=== PATIENT | male | born 1960 ===

== ENCOUNTER 2024-02-12 14:57 | Inpatient (IN) | payer OTHER, MEDICARE ==
[~2024-02-12] VITALS: Ht 175.3 cm; Wt 100.7 kg
[2024-02-12 15:34] LABS: BASOPHILS ABSOLUTE AUTO 0.03 K/mm3 (0.00-0.23); BASOPHILS PERCENT AUTO 0 % (0-2); EOSINOPHILS ABSOLUTE AUTO 0.17 K/mm3 (0.00-0.68); EOSINOPHILS PERCENT AUTO 2 % (0-6); Hematocrit 39.7 % (37.0-53.0); Hemoglobin 13.7 g/dL (13.5-17.5); IMMATURE GRAN ABSOLUTE AUTO 0.02 K/mm3 (0.00-0.10); IMMATURE GRAN PERCENT AUTO 0 % (0-1); LYMPHOCYTES ABSOLUTE AUTO 1.68 K/mm3 (0.84-5.20); LYMPHOCYTES PERCENT AUTO 24 % (21-46); MONOCYTES ABSOLUTE AUTO 0.89 K/mm3 (0.16-1.47); MONOCYTES PERCENT AUTO 13 % (4-13); Mean Corpuscular HGB 31.4 pg (26.0-34.0); Mean Corpuscular HGB Conc 34.5 g/dL (31.5-36.5); Mean Corpuscular Volume 91 fL (80-100); Mean Platelet Volume 9.7 fL (9.1-12.4); NEUTROPHILS ABSOLUTE AUTO 4.17 K/mm3 (1.96-9.15); NEUTROPHILS PERCENT AUTO 60 % (41-73); Platelet Count 226 K/mm3 (150-400); RDW Coefficient Variation 13.2 % (11.7-14.2); RDW Standard Deviation 43.8 fL (35.1-46.3); Red Blood Cell Count 4.37 M/mm3 (4.30-5.90); White Blood Cell Count 6.96 K/mm3 (4.00-11.30)
[2024-02-12 15:55] LABS: Albumin, Blood 3.2 g/dL (3.4-5.0); Albumin/Globulin Ratio 0.8 (0.8-1.8); Bilirubin, Total 0.4 mg/dL (0.1-1.0); Bun/Creatinine Ratio 11.1 (12.0-20.0); Calcium, Blood 9.1 mg/dL (8.5-10.1); Creatinine, Blood 1.17 mg/dL (0.60-1.20); Globulin, Blood 3.9 g/dL (2.2-4.0); Potassium, Blood 3.6 mmol/L (3.5-5.5); Total Protein, Blood 7.1 g/dL (6.4-8.2)
[2024-02-12] MEDS ORDERED: AMLO5 (18:08)
[2024-02-12] MEDS ORDERED: ASPI81CH PO (18:08)
[2024-02-12] MEDS ORDERED: LISI5 (18:08)
[2024-02-12] MEDS ORDERED: ATOR10 (18:08)
[2024-02-12] MEDS ORDERED: OMEP20ER PO (18:08)
[2024-02-12] MEDS ORDERED: RANEXA1000 M4 (18:09)
[2024-02-12] MEDS ORDERED: Vancomycin HCL 2,000 MG in NS 500 ML IV ONE (18:20)
[2024-02-12] MEDS ORDERED: Clindamycin 600mg in D5W 50 ML IV ONE (18:25)
[2024-02-12] MEDS ORDERED: Piperacillin/Tazobactam Sod 4.5 GM in NS 100 ML IV ONE (18:25)
[2024-02-12 19:57] LABS: C-REACTIVE PROTEIN, EXT RANGE 4.39 mg/dL (0.000-0.300); Magnesium, Blood 1.5 mg/dL (1.6-2.4)
[2024-02-12 19:59] LABS: International Normalized Ratio 1.02; Prothrombin Time Results 10.9 Sec (9.7-11.5)
[2024-02-12 20:01] LABS: Albumin, Blood 3.1 g/dL (3.4-5.0); Albumin/Globulin Ratio 0.9 (0.8-1.8); Bilirubin, Direct 0.2 mg/dL (0.0-0.3); Bilirubin, Indirect 0.4 mg/dL (0.1-0.7); Bilirubin, Total 0.6 mg/dL (0.1-1.0); Globulin, Blood 3.4 g/dL (2.2-4.0); Phosphorus, Blood 3.1 mg/dL (2.5-4.9); Total Protein, Blood 6.5 g/dL (6.4-8.2)
[2024-02-12] MEDS ORDERED: Magnesium Sulf 2 GM/Water 50ML 50 ML IV STA (21:00)
[2024-02-12] MEDS ORDERED: FLU VACC TS2024-25(6MOS UP)/PF 45 MCG/0.5 ML SYRINGE IM ONE (21:00)
[2024-02-12] MEDS ORDERED: Diphth,Pertuss(Acell),Tet Vac 0.5 ML VIAL IM ONE (21:32)
[2024-02-13] VITALS (10 sets, daily range): BP systolic 129–148; BP diastolic 80–94
[2024-02-13] MEDS ORDERED: CeFAZolin Sodium 1,000 MG in NS 50 ML IV SCH
[2024-02-13 05:08] LABS: BASOPHILS ABSOLUTE AUTO 0.03 K/mm3 (0.00-0.23); BASOPHILS PERCENT AUTO 1 % (0-2); EOSINOPHILS PERCENT AUTO 3 % (0-6); Hematocrit 36.4 % (37.0-53.0); Hemoglobin 12.7 g/dL (13.5-17.5); IMMATURE GRAN ABSOLUTE AUTO 0.02 K/mm3 (0.00-0.10); IMMATURE GRAN PERCENT AUTO 0 % (0-1); LYMPHOCYTES ABSOLUTE AUTO 1.56 K/mm3 (0.84-5.20); LYMPHOCYTES PERCENT AUTO 26 % (21-46); MONOCYTES ABSOLUTE AUTO 0.74 K/mm3 (0.16-1.47); MONOCYTES PERCENT AUTO 12 % (4-13); Mean Corpuscular HGB 31.8 pg (26.0-34.0); Mean Corpuscular HGB Conc 34.9 g/dL (31.5-36.5); Mean Corpuscular Volume 91 fL (80-100); Mean Platelet Volume 9.6 fL (9.1-12.4); NEUTROPHILS PERCENT AUTO 57 % (41-73); Platelet Count 214 K/mm3 (150-400); RDW Coefficient Variation 13.2 % (11.7-14.2); RDW Standard Deviation 44.4 fL (35.1-46.3); White Blood Cell Count 5.95 K/mm3 (4.00-11.30)
[2024-02-13] MEDS ORDERED: Piperacillin/Tazobactam Sod 3.375 GM in NS 100 ML IV SCH ×2 (06:00→18:00)
[2024-02-13 06:02] LABS: Albumin, Blood 2.7 g/dL (3.4-5.0); Albumin/Globulin Ratio 0.8 (0.8-1.8); Bilirubin, Total 0.5 mg/dL (0.1-1.0); Bun/Creatinine Ratio 17.4 (12.0-20.0); Calcium, Blood 9.1 mg/dL (8.5-10.1); Creatinine, Blood 0.92 mg/dL (0.60-1.20); Globulin, Blood 3.4 g/dL (2.2-4.0); Potassium, Blood 3.7 mmol/L (3.5-5.5); Total Protein, Blood 6.1 g/dL (6.4-8.2)
[2024-02-13] MEDS ORDERED: Magnesium Sulf 2 GM/Water 50ML 50 ML IV STA (07:29)
[2024-02-13] MEDS ORDERED: Lactated Ringer's 1,000 ML IV SCH (08:45)
[2024-02-13] MEDS ORDERED: Enoxaparin 40 MG/0.4 ML SYR SC SCH (09:00)
[2024-02-13] MEDS ORDERED: Lactobacil 2-S.Thermo-Bifido 1 1 Cap PO SCH (09:00)
[2024-02-13] MEDS ORDERED: AMLO5 PO (09:36)
[2024-02-13] MEDS ORDERED: Aspir 8181 MG PO (09:38)
[2024-02-13] MEDS ORDERED: ATOR40TA PO (09:40)
[2024-02-13] MEDS ORDERED: RANO500T PO (09:41)
[2024-02-13] MEDS ORDERED: FURO40 PO (09:41)
[2024-02-13] MEDS ORDERED: Zestril30 MG PO (09:42)
[2024-02-13] MEDS ORDERED: IBUP800 PO (11:31)
[2024-02-13] MEDS ORDERED: Vancomycin HCL 1,500 MG in NS 250 ML IV SCH (12:00)
[2024-02-13] MEDS ORDERED: Ketorolac Tromethamine 15mg Vial IV ONE (12:00)
[2024-02-13] MEDS ORDERED: Bupivacaine 0.5% HCl 5 MG/ML 30MLVIAL ONE (14:27)
[2024-02-13] MEDS ORDERED: Ibuprofen 400 MG Tab PO PRN (14:35)
[2024-02-13] MEDS ORDERED: Metoclopramide HCl 5MG / ML 2ML Vial ONE (14:48)
[2024-02-13] MEDS ORDERED: Ondansetron HCl 2 MG / ML 2ML Vial ONE (14:48)
[2024-02-13] MEDS ORDERED: FentaNYL Citrate 50 MCG/ML 2 ML Injection ONE (14:49)
[2024-02-13] MEDS ORDERED: propofoL 20 ML IV ONE (14:49)
[2024-02-13] MEDS ORDERED: Rocuronium Bromide 10 MG/ML 5ML Injection IV ONE (15:17)
[2024-02-13] MEDS ORDERED: Sugammadex Sodium 200 MG/2ML SDV (100 MG/ML) ONE (15:22)
[2024-02-13] MEDS ORDERED: NS 250 ML IV PRN (17:25)
--- NOTE | 2024-02-13 18:11 | NUR ---
SHIFT SUMMARY PATIENT UNDERWENT I&D THIS SHIFT. LEFT FOOT FLASH WRAPPED IN SURGERY, DID NOT REMOVE. CSM INTACT. A/O X4. ABLE TO ADHERE TO NON WEIGHT BEARING STATUS. TOLEARTING IV ABX WELL. ABLE TO MAKE NEEDS KNOWN. CALL LIGHT IN REACH, CARES ONGOING.
[2024-02-13] MEDS ORDERED: AmLODIPine Besylate 5 MG Tab PO SCH (21:00)
[2024-02-13] MEDS ORDERED: Ranolazine 500 MG ER Tablet PO SCH (21:00)
[2024-02-13] MEDS ORDERED: Atorvastatin 40 MG Tab PO SCH (21:00)
[2024-02-14 00:02] VITALS: BP 133/76
--- NOTE | 2024-02-14 03:27 | NUR ---
SHIFT SUMMARY PT AOX4, COOPERATIVE, ABLE TO MAKE NEEDS KNOWN. DID TRANSFER TO BATHROOM USING FWW WITH SUPERVISION OF THIS RN, NO INJURIES INCURRED. PT DID EXPRESS OCCASIONAL BOWEL URGENCY, COMMODE PLACED AT BEDSIDE. TOLERATING PO MEDS AND IV ANTIBIOTICS WELL. BED IN LOWEST POSITION, CALL LIGHT WITHIN REACH. WAS TOLD MY PREVIOUS RN THAT LEFT FOOT WOUND CARE WOULD BE PERFORMED BY PODIATRY, PT FAMILY ALSO CONFIRMED.
[2024-02-14 04:29] VITALS: BP 149/78
[2024-02-14 05:28] LABS: BASOPHILS ABSOLUTE AUTO 0.03 K/mm3 (0.00-0.23); BASOPHILS PERCENT AUTO 0 % (0-2); EOSINOPHILS ABSOLUTE AUTO 0.25 K/mm3 (0.00-0.68); EOSINOPHILS PERCENT AUTO 4 % (0-6); Hematocrit 37.4 % (37.0-53.0); Hemoglobin 12.7 g/dL (13.5-17.5); IMMATURE GRAN ABSOLUTE AUTO 0.02 K/mm3 (0.00-0.10); IMMATURE GRAN PERCENT AUTO 0 % (0-1); LYMPHOCYTES PERCENT AUTO 21 % (21-46); MONOCYTES ABSOLUTE AUTO 0.58 K/mm3 (0.16-1.47); MONOCYTES PERCENT AUTO 9 % (4-13); Mean Corpuscular HGB 30.8 pg (26.0-34.0); Mean Corpuscular Volume 91 fL (80-100); Mean Platelet Volume 9.7 fL (9.1-12.4); NEUTROPHILS ABSOLUTE AUTO 4.47 K/mm3 (1.96-9.15); NEUTROPHILS PERCENT AUTO 66 % (41-73); Platelet Count 214 K/mm3 (150-400); RDW Coefficient Variation 12.9 % (11.7-14.2); RDW Standard Deviation 42.8 fL (35.1-46.3); Red Blood Cell Count 4.12 M/mm3 (4.30-5.90); White Blood Cell Count 6.75 K/mm3 (4.00-11.30)
[2024-02-14] MEDS ORDERED: Omeprazole 20 MG CapCR PO SCH (06:00)
[2024-02-14 07:09] VITALS: BP 135/89
[2024-02-14 08:21] LABS: Albumin, Blood 2.7 g/dL (3.4-5.0); Albumin/Globulin Ratio 0.8 (0.8-1.8); Bilirubin, Total 0.6 mg/dL (0.1-1.0); Bun/Creatinine Ratio 20.6 (12.0-20.0); Calcium, Blood 8.8 mg/dL (8.5-10.1); Creatinine, Blood 0.92 mg/dL (0.60-1.20); Globulin, Blood 3.3 g/dL (2.2-4.0); Magnesium, Blood 1.9 mg/dL (1.6-2.4); Potassium, Blood 4.1 mmol/L (3.5-5.5)
[2024-02-14] MEDS ORDERED: Aspirin 81 MG TabEC PO SCH (09:00)
[2024-02-14] MEDS ORDERED: Lisinopril 5 MG Tab PO SCH (09:00)
[2024-02-14 12:15] LABS: Vancomycin, Trough 18.3 ug/mL (5.0-10.0)
--- NOTE | 2024-02-14 15:02 | NUR ---
PT AWAKE DURING SHIFT REPORT, RESTING QUIETLY WITH LLE ELEVATED ON BED. PT WITH LLE FOOT CELLULITIS AND I&D DONE YESTERDAY. DR FUNES IN TO SEE PT AND DISCUSS PLAN OF CARE. DRSG CHANGED AND DRAIN PULLED FROM ABSCESS SITE. PER DR FUNES, SITE IS MUCH IMPROVED. REDNESS DECREASED AND SWELLING DOWN. D/C INSTRUCTIONS GIVEN R/T WOUND CARE AT HOME. DRSG TO BE CHANGED Q3D. PT VERBALIZED UNDERSTANDING. SOME WOUND CARE SUPPLIES GIVEN TO PT. POST OP SHOE OBTAINED AND GIVEN PER ORDERS. SCRIPTS FOR BACTRIM ABX AND KNEE SCOOTER ALSO GIVEN. D/C INSTRUCTIONS REVIEWED WITH PT; VERBALIZED UNDERSTANDING. NO C/O PAIN. DECLINED NEEDING ANY PAIN MEDICATION. IV SITE NOW D/C'D. PT DRESSED AND WAITING FOR TO PICK HIM UP.
== END 2024-02-14 16:22 | disposition home or self-care (01) | DRG 571 ==
LOC: ER 14:57 → ERHOLD 14:58 → MEDS 14:58 → ERHOLD 14:58 → MEDS 02-13 09:29 → ENPENDDIS 02-14 14:03 → MEDS 02-14 16:22
PROVIDERS: Family Medicine; Physician Assistant; Podiatrist Foot & Ankle Surgery; Student in an Organized Health Care Education/Training Program; ADMIT Student in an Organized Health Care Education/Training Program
PROC: 0JBR0ZZ Excision of Left Foot Subcutaneous Tissue and Fascia, Open Approach (ICD-10-PCS; principal; 2024-02-13 14:30)
DX: L03.116 Cellulitis of left lower limb (principal); L02.612 Cutaneous abscess of left foot; I10 Essential (primary) hypertension; E11.9 Type 2 diabetes mellitus without complications; J44.9 Chronic obstructive pulmonary disease, unspecified; I25.10 Atherosclerotic heart disease of native coronary artery without angina pectoris; E83.42 Hypomagnesemia; Z88.5 Allergy status to narcotic agent; Z88.8 Allergy status to other drugs, medicaments and biological substances; Z79.82 Long term (current) use of aspirin; Z79.899 Other long term (current) drug therapy; Z95.5 Presence of coronary angioplasty implant and graft; Z95.1 Presence of aortocoronary bypass graft
CPT/HCPCS: 36415; 73630; 73701; 80053; 80076; 80202; 82947; 83605; 83735; 84100; 84145; 85025; 85610; 85651; 85730; 86140; 87040; 87070; 87077; 87186; 87205; 90715; 96365-59; 96366; 96367; 96368; 96375; 96376; 99285-25; A9270; G0378; J0690; J1650; J1885; J2405; J2543; J2704; J2765; J3010; J3370; J3475; J7040; J7050; J7120; Q9967